=== PATIENT | female | born 1995 | race Caucasian/White ===

== ENCOUNTER 2016-10-07 03:04 | Emergency (ER) | payer MEDICAID ==
[~2016-10-07] VITALS: Ht 162.6 cm; Wt 50.0 kg
[~2016-10-07 03:04] MED LIST: INHALER
[2016-10-07] MEDS ORDERED: ONDANSETRON HCL 4MG/2ML VIAL IV STA (03:19)
[2016-10-07] MEDS ORDERED: SODIUM CHLORIDE 0.9% 1,000 ML IV ONE (03:19)
[2016-10-07 03:39] LABS: CHLORIDE 107 mEq/L (98-107); INDEX HEMOLYSI 1 (1-3); INDEX ICTERIC 1 (1-4); INDEX LIPEMIC 1 (1-3)
[2016-10-07 03:42] LABS: DIFFERENTIAL COMMENT 1; HEMATOCRIT. 34.2 % (36.0-48.0); HEMOGLOBIN. 11.2 g/dL (12.0-16.0); MEAN CORPUSCULAR HEMOGLOBIN 27.5 pg (28.0-32.0); MEAN CORPUSCULAR HGB CONC 32.8 g/dL (31.0-37.0); MEAN PLATELET VOLUME 8.6 fl (7.4-10.4); PLATELET 217 x1000/uL (130-400); RED BLOOD CELL COUNT 4.07 mill/uL (4.2-5.4); RED CELL DISTRIBUTION WIDTH 17.1 % (11.6-14.6); WHITE BLOOD COUNT 10.2 x1000/uL (4.5-11.0)
[2016-10-07 03:45] LABS: ANION GAP 14; CALCIUM 8.8 mg/dL (8.5-10.1); CARBON DIOXIDE 24 mEq/L (21-32); UREA NITROGEN BLOOD 11 mg/dL (7-21); eGFR > 60 mL/min (>60)
[2016-10-07 03:50] LABS: HCG SCREEN NEGATIVE
[2016-10-07 03:52] LABS: CLARITY URINE CLOUDY (CLEAR); COLOR URINE YELLOW (YELLOW); GLUCOSE URINE NEGATIVE (NEGATIVE); KETONES URINE 4+ (NEGATIVE); LEUKOCYTE ESTERASE URINE NEGATIVE (NEGATIVE); NITRITE URINE NEGATIVE (NEGATIVE); OCCULT BLOOD URINE NEGATIVE (NEGATIVE); PH URINE 6.5 (4.5-8.0); PROTEIN URINE 1+ (NEGATIVE); SPECIFIC GRAVITY URINE 1.041 (1.005-1.030)
[2016-10-07 04:28] LABS: PLATELET ESTIMATE NORMAL
[2016-10-07 04:33] LABS: BACTERIA URINE NONE SEEN; RBC URINE NONE SEEN /hpf (0-2); SQUAMOUS EPITHELIAL CELL URINE 2+ /lpf (RARE/1+); WBC URINE NONE SEEN /hpf (0-2)
[2016-10-07 04:59] VITALS: BP 111/64
== END 2016-10-07 05:20 | disposition home or self-care (01) ==
LOC: ER 03:04
DX: R11.2 Nausea with vomiting, unspecified (principal)
CPT/HCPCS: 36415; 80048; 81001; 84703; 85025; 96361; 96374; 99284; J2405; J7030; Z7610

== ENCOUNTER 2017-01-21 11:13 | Emergency (ER) | payer MEDICAID ==
[~2017-01-21] VITALS: Ht 162.6 cm; Wt 50.0 kg
[2017-01-21] MEDS ORDERED: BACITRACIN ZINC OINT UDPKT TOP ONE (12:15)
[2017-01-21] MEDS ORDERED: TETANUS, DIPHTHERIA, PERTUSSIS VAC/PF 0.5ML (>7YR OLD) IM ONE (12:15)
[2017-01-21] MEDS ORDERED: LIDOCAINE HCL 1% 20ML VIAL (Pyxis) INJ MC ONE (12:15)
[2017-01-21 15:14] VITALS: BP 109/72
== END 2017-01-21 15:20 | disposition home or self-care (01) ==
LOC: ER 11:26
DX: S61.411A Laceration without foreign body of right hand, initial encounter (principal); J45.909 Unspecified asthma, uncomplicated; W45.8XXA Other foreign body or object entering through skin, initial encounter; Y93.89 Activity, other specified; Y92.89 Other specified places as the place of occurrence of the external cause
CPT/HCPCS: 12042; 90471; 90715; 99284; J3490; X7700; Z7610

== ENCOUNTER 2017-02-02 15:55 | Emergency (ER) | payer MEDICAID, OTHER ==
[~2017-02-02] VITALS: Ht 157.5 cm; Wt 57.0 kg
[2017-02-02] MEDS ORDERED: IBUPROFEN 800MG TABLET PO ONE (19:00)
[2017-02-02 22:54] VITALS: BP 118/54
== END 2017-02-03 01:12 | disposition home or self-care (01) ==
LOC: ER 19:03
DX: J06.9 Acute upper respiratory infection, unspecified (principal); J45.909 Unspecified asthma, uncomplicated
CPT/HCPCS: 71010; 81025; 99283

== ENCOUNTER 2017-03-06 02:16 | Emergency (ER) | payer MEDICAID ==
[~2017-03-06] VITALS: Ht 162.6 cm; Wt 53.0 kg
[2017-03-06] MEDS ORDERED: IBUPROFEN 600MG TABLET PO ONE (05:00)
[2017-03-06 05:14] VITALS: BP 106/46
== END 2017-03-07 05:30 | disposition home or self-care (01) ==
LOC: ER 07:25
DX: J06.9 Acute upper respiratory infection, unspecified (principal); N39.0 Urinary tract infection, site not specified; J45.909 Unspecified asthma, uncomplicated
CPT/HCPCS: 99283

== ENCOUNTER 2017-10-21 13:01 | Emergency (ER) | payer MEDICAID ==
[~2017-10-21] VITALS: Ht 160 cm; Wt 61.0 kg
[2017-10-21 14:00] LABS: BASOPHILS % 1.4 % (0.0-2.0); EOSINOPHILS % 9.5 % (0.0-5.0); HEMATOCRIT. 30.8 % (36.0-48.0); LYMPHOCYTES % 22.4 % (20.0-50.0); MEAN CORPUSCULAR VOLUME 76.9 fL (81.0-99.0); MEAN PLATELET VOLUME 7.7 fl (7.4-10.4); MONOCYTES % 9.7 % (2.0-8.0); PLATELET 428 x1000/uL (130-400); RED BLOOD CELL COUNT 4.01 mill/uL (4.2-5.4); RED CELL DISTRIBUTION WIDTH 21.5 % (11.6-14.6)
[2017-10-21 14:03] LABS: CHLORIDE 110 mEq/L (98-107)
[2017-10-21 14:04] LABS: PROTHROMBIN TIME 10.7 sec (9.4-11.6)
[2017-10-21 14:28] LABS: HCG SCREEN NEGATIVE
[2017-10-21] MEDS ORDERED: KETOROLAC 30MG/ML VIAL IV STA (21:23)
[2017-10-21] MEDS ORDERED: ONDANSETRON HCL 4MG/2ML VIAL IV STA (21:23)
[2017-10-21] MEDS ORDERED: SODIUM CHLORIDE 0.9% 1,000 ML IV ONE (21:23)
[2017-10-21 21:35] LABS: CLARITY URINE CLOUDY (CLEAR); COLOR URINE YELLOW (YELLOW); KETONES URINE NEGATIVE (NEGATIVE); LEUKOCYTE ESTERASE URINE NEGATIVE (NEGATIVE); NITRITE URINE NEGATIVE (NEGATIVE); OCCULT BLOOD URINE 2+ (NEGATIVE); PROTEIN URINE NEGATIVE (NEGATIVE); SPECIFIC GRAVITY URINE 1.029 (1.005-1.030)
[2017-10-22] MEDS ORDERED: VISCOUS LIDOCAINE 2% 15 ML UDC PO STA (00:35)
[2017-10-22] MEDS ORDERED: ACETAMINOPHEN 325MG TABLET PO STA (00:35)
[2017-10-22] MEDS ORDERED: MAGNESIUM/ALUMINUM HYDROXIDE/SIMETHICONE 30ML UDC PO STA (00:35)
[2017-10-22] MEDS ORDERED: FAMOTIDINE 20MG TABLET PO ONE (00:45)
[2017-10-22 02:00] VITALS: BP 115/78
== END 2017-10-22 02:03 | disposition home or self-care (01) ==
LOC: ER 13:11
DX: R10.12 Left upper quadrant pain (principal); R10.11 Right upper quadrant pain; R03.0 Elevated blood-pressure reading, without diagnosis of hypertension; J45.909 Unspecified asthma, uncomplicated; R11.2 Nausea with vomiting, unspecified
CPT/HCPCS: 36415; 76700; 80053; 81003; 83690; 84703; 85025; 85610; 96361; 96374; 96375; 99285; J1885; J2405; J7030; Z7610

== ENCOUNTER 2018-10-15 23:09 | Emergency (ER) | payer MEDICAID ==
[~2018-10-15] VITALS: Ht 165.1 cm; Wt 65.0 kg
[2018-10-15] MEDS ORDERED: MORPHINE SULFATE 4 MG/ML CPJ (NOT FOR IM USE) IV NR (23:30)
[2018-10-15] MEDS ORDERED: ONDANSETRON HCL 4MG/2ML INJ IV NR (23:30)
[2018-10-16] MEDS ORDERED: KETAMINE HCL 50 MG/ML 10ML IV ONE ×2 (00:15→04:00)
[2018-10-16] MEDS ORDERED: PROPOFOL 200MG/20ML VIAL IV ONE ×2 (00:15→04:00)
[2018-10-16 06:20] VITALS: BP 125/73
== END 2018-10-16 06:21 | disposition home or self-care (01) ==
LOC: ER 23:09
DX: S43.084A Other dislocation of right shoulder joint, initial encounter (principal); J45.909 Unspecified asthma, uncomplicated; X58.XXXA Exposure to other specified factors, initial encounter; Y93.89 Activity, other specified; Y92.89 Other specified places as the place of occurrence of the external cause; Y99.8 Other external cause status
CPT/HCPCS: 73020; 73030; 99284; J2270; J2405; J2704; J3490

== ENCOUNTER 2019-01-26 11:44 | Emergency (ER) | payer MEDICAID, OTHER ==
[~2019-01-26] VITALS: Ht 165.1 cm; Wt 64.0 kg
[2019-01-26] MEDS ORDERED: FAMOTIDINE 20MG/2ML VIAL IV STA (13:45)
[2019-01-26] MEDS ORDERED: ONDANSETRON HCL 4MG/2ML INJ IV STA (13:45)
[2019-01-26] MEDS ORDERED: MAGNESIUM/ALUMINUM HYDROXIDE/SIMETHICONE 30ML UDC PO STA (13:45)
[2019-01-26] MEDS ORDERED: KETOROLAC 30MG/ML VIAL IV STA (13:45)
[2019-01-26] MEDS ORDERED: ACETAMINOPHEN 325MG TABLET PO STA (13:45)
[2019-01-26 14:25] LABS: BASOPHILS % 0.8 % (0.0-2.0); EOSINOPHILS % 0.2 % (0.0-5.0); HEMATOCRIT. 32.8 % (36.0-48.0); HEMOGLOBIN. 10.3 g/dL (12.0-16.0); MEAN CORPUSCULAR HEMOGLOBIN 24.3 pg (28.0-32.0); MEAN CORPUSCULAR VOLUME 76.9 fL (81.0-99.0); MEAN PLATELET VOLUME 8.1 fl (7.4-10.4); MONOCYTES % 5.5 % (2.0-8.0); NEUTROPHILS % 85.5 % (40.0-76.0); PLATELET 328 x1000/uL (130-400); RED BLOOD CELL COUNT 4.26 mill/uL (4.2-5.4); RED CELL DISTRIBUTION WIDTH 20.8 % (11.6-14.6)
[2019-01-26 14:31] LABS: CHLORIDE 107 mEq/L (98-107)
[2019-01-26 14:43] LABS: CLARITY URINE CLEAR (CLEAR); COLOR URINE YELLOW (YELLOW); KETONES URINE NEGATIVE (NEGATIVE); LEUKOCYTE ESTERASE URINE NEGATIVE (NEGATIVE); NITRITE URINE NEGATIVE (NEGATIVE); OCCULT BLOOD URINE NEGATIVE (NEGATIVE); PH URINE >=9.0 (4.5-8.0); PROTEIN URINE 1+ (NEGATIVE); SPECIFIC GRAVITY URINE 1.021 (1.005-1.030)
[2019-01-26 16:23] VITALS: BP 126/81
[2019-01-27] MEDS ORDERED: FERR325T6 PO (16:36)
[2019-01-27] MEDS ORDERED: ALBU90AE IH (16:36)
== END 2019-01-26 16:26 | disposition home or self-care (01) ==
LOC: ER 11:44
DX: R10.13 Epigastric pain (principal); R11.2 Nausea with vomiting, unspecified; J45.909 Unspecified asthma, uncomplicated
CPT/HCPCS: 36415; 80053; 81003; 81025; 83690; 85025; 96374; 96375; 99283; J1885; J2405; J3490; Z7610

== ENCOUNTER 2019-01-28 07:15 | Inpatient (IN) | payer MEDICAID ==
[2019-01-28] VITALS: BP 114/45
[~2019-01-28] VITALS: Ht 160 cm; Wt 64.0 kg
[~2019-01-28 07:15] MED LIST changes: +ALBU90AE IH; +CEFOXITIN SODIUM 2 G in DEXT 5% WATER 100 ML IV STA; +FERR325T6 PO; -INHALER
[2019-01-28] MEDS ORDERED: CEFAZOLIN 2000MG PREMIX 50 ML IV ONE (07:45)
[2019-01-28 08:22] LABS: UCG SCREEN NEGATIVE
[2019-01-28 08:27] LABS: HEMATOCRIT 28.3 % (36.0-48.0); HEMOGLOBIN 9.1 g/dL (12.0-16.0)
[2019-01-28] MEDS ORDERED: LACTATED RINGERS 1,000 ML IV SCH (08:30)
[2019-01-28] MEDS ORDERED: LIDOCAINE HCL 1% 20ML VIAL (Pyxis) INJ ONE (11:06)
[2019-01-28] MEDS ORDERED: SKIN ADHESIVE 0.7 GM EA TOP ONE (11:06)
[2019-01-28] MEDS ORDERED: BACITRACIN 50,000 UNITS/VIAL ONE (11:07)
[2019-01-28] MEDS ORDERED: BUPIVACAINE HCL/PF 0.5% (5MG/ML) 10ML ONE (11:07)
[2019-01-28] MEDS ORDERED: NORMAL SALINE 0.9% 10 ML SYR ONE (11:07)
[2019-01-28] MEDS ORDERED: INDOCYANINE GREEN 25 MG VIAL IV ONE (11:08)
[2019-01-28] MEDS ORDERED: PROPOFOL 200MG/20ML VIAL IV ONE (11:54)
[2019-01-28] MEDS ORDERED: MIDAZOLAM HCL 2 MG/2 ML VIAL ONE (11:54)
[2019-01-28] MEDS ORDERED: ROCURONIUM BROMIDE 10MG/ML VIAL 5ML IV ONE (11:54)
[2019-01-28] MEDS ORDERED: FENTANYL CITRATE/PF 50MCG/ML 2ML VIAL ONE ×2 (11:54→12:12)
[2019-01-28] MEDS ORDERED: NEOSTIGMINE METHYLSULFATE 1MG/ML 10 ML VIAL ONE (11:54)
[2019-01-28] MEDS ORDERED: METOCLOPRAMIDE HCL 10MG/2ML VIAL ONE (11:55)
[2019-01-28] MEDS ORDERED: LIDOCAINE HCL/PF 1% 10 MG/ML 5ML VIAL ONE (11:55)
[2019-01-28] MEDS ORDERED: GLYCOPYRROLATE 0.2 MG/ML 2ML VIAL ONE (11:55)
[2019-01-28] MEDS ORDERED: ONDANSETRON HCL 4MG/2ML INJ ONE (11:55)
[2019-01-28] MEDS ORDERED: SUCCINYLCHOLINE CHLORIDE 200MG/10ML IV ONE (11:55)
[2019-01-28] MEDS ORDERED: SODIUM CHLORIDE 0.9% 10ML VIAL ONE (11:55)
[2019-01-28] MEDS ORDERED: CEFAZOLIN SODIUM 1000MG/VIAL ONE (11:55)
[2019-01-28] MEDS ORDERED: HYDROMORPHONE HCL/PF 2MG/ML CPJ IV PRN ×2 (12:15→14:30)
[2019-01-28] MEDS ORDERED: MORPHINE SULFATE 2 MG/ML CPJ (NOT FOR IM USE) IV PRN (12:15)
[2019-01-28] MEDS ORDERED: MEPERIDINE HCL/PF 25MG/ML CPJ IV PRN ×2 (12:15)
[2019-01-28] MEDS ORDERED: SODIUM CHLORIDE 0.9% 1,000 ML IV ONE (12:15)
[2019-01-28] MEDS: ONDANSETRON HCL 4MG/2ML INJ IV PRN ×3 (14:00→19:50)
[2019-01-28] MEDS ORDERED: KETOROLAC 30MG/ML VIAL IV SCH (14:30)
[2019-01-28] MEDS ORDERED: ONDANSETRON HCL 4MG/2ML INJ IV PRN (14:30)
[2019-01-28 15:30] VITALS: BP 113/66
[2019-01-28 16:00] VITALS: BP 113/66
[2019-01-28] MEDS ORDERED: SODIUM CHLORIDE 0.45% 1,000 ML IV SCH (16:30)
[2019-01-28] MEDS: HYDROMORPHONE HCL/PF 2MG/ML CPJ IV PRN (19:51)
[2019-01-28 20:00] VITALS: BP 121/76
[2019-01-28] MEDS: KETOROLAC 30MG/ML VIAL IV SCH (22:59)
[2019-01-29] MEDS: ONDANSETRON HCL 4MG/2ML INJ IV PRN (01:47)
[2019-01-29] MEDS: HYDROMORPHONE HCL/PF 2MG/ML CPJ IV PRN (01:48)
[2019-01-29 04:00] VITALS: BP 100/54
[2019-01-29] MEDS: KETOROLAC 30MG/ML VIAL IV SCH ×2 (04:59→10:00)
[2019-01-29 08:00] VITALS: BP 95/53
[2019-01-29 10:25] VITALS: BP 95/53
[2019-01-29 12:00] VITALS: BP 110/68
== END 2019-01-29 12:46 | disposition home or self-care (01) | DRG 263 ==
LOC: OR 07:15 → 6EST 07:16
PROVIDERS: ADMIT Specialist; ATTEND Specialist
PROC: 0FT44ZZ Resection of Gallbladder, Percutaneous Endoscopic Approach (ICD-10-PCS; principal; 2019-01-28)
PROC: 8E0W4CZ Robotic Assisted Procedure of Trunk Region, Percutaneous Endoscopic Approach (ICD-10-PCS; 2019-01-28)
DX: K80.20 Calculus of gallbladder without cholecystitis without obstruction (principal); J45.909 Unspecified asthma, uncomplicated; Z79.899 Other long term (current) drug therapy
CPT/HCPCS: 36415; 81025; 85014; 85018; 88304; J0330; J0690; J1170; J1885; J2250; J2405; J2704; J2710; J2765; J3010; J3490; Q9957

== ENCOUNTER 2019-01-29 23:20 | Emergency (ER) | payer MEDICAID ==
[~2019-01-29] VITALS: Ht 170.2 cm; Wt 64.0 kg
[~2019-01-29 23:20] MED LIST changes: -CEFOXITIN SODIUM 2 G in DEXT 5% WATER 100 ML IV STA
[2019-01-30] MEDS ORDERED: KETOROLAC 30MG/ML VIAL IV ONE (00:30)
[2019-01-30] MEDS ORDERED: PROPOFOL 200MG/20ML VIAL IV ONE (01:00)
[2019-01-30] MEDS ORDERED: KETAMINE HCL 50 MG/ML 10ML IV ONE (01:00)
[2019-01-30] MEDS ORDERED: ONDANSETRON HCL 4MG/2ML INJ IV ONE (01:15)
[2019-01-30 02:45] VITALS: BP 112/67
== END 2019-01-30 03:00 | disposition home or self-care (01) ==
LOC: ER 23:20
DX: S43.014A Anterior dislocation of right humerus, initial encounter (principal); X58.XXXA Exposure to other specified factors, initial encounter; Y93.84 Activity, sleeping; Y92.013 Bedroom of single-family (private) house as the place of occurrence of the external cause
CPT/HCPCS: 23650; 73020; 73030; 96374; 96375; 99285; J1885; J2405; J2704; J3490; Z7610

== ENCOUNTER 2019-03-07 23:28 | Emergency (ER) | payer MEDICAID ==
[~2019-03-07] VITALS: Ht 162.6 cm; Wt 65.0 kg
[2019-03-08] MEDS ORDERED: IBUPROFEN 600MG TABLET PO ONE (07:00)
[2019-03-08 08:26] VITALS: BP 108/62
== END 2019-03-08 08:30 | disposition home or self-care (01) ==
LOC: ER 23:28
DX: S93.401A Sprain of unspecified ligament of right ankle, initial encounter (principal); X58.XXXA Exposure to other specified factors, initial encounter; Y93.89 Activity, other specified; Y92.89 Other specified places as the place of occurrence of the external cause
CPT/HCPCS: 73610; 99283

== ENCOUNTER 2019-06-04 08:36 | Emergency (ER) | payer MEDICAID ==
[~2019-06-04] VITALS: Ht 165.1 cm; Wt 60.0 kg
[2019-06-04] MEDS ORDERED: MAGNESIUM/ALUMINUM HYDROXIDE/SIMETHICONE 30ML UDC PO STA (10:24)
[2019-06-04] MEDS ORDERED: SODIUM CHLORIDE 0.9% 1,000 ML IV ONE (10:24)
[2019-06-04] MEDS ORDERED: ONDANSETRON HCL 4MG/2ML INJ IV STA (10:24)
[2019-06-04] MEDS ORDERED: VISCOUS LIDOCAINE 2% 15 ML UDC PO STA (10:24)
[2019-06-04] MEDS ORDERED: KETOROLAC 30MG/ML VIAL IV STA (10:24)
[2019-06-04] MEDS ORDERED: DICYCLOMINE 10 MG/5 ML ORAL SYR PO STA (10:24)
[2019-06-04 10:34] LABS: BASOPHILS % 0.9 % (0.0-2.0); EOSINOPHILS % 6.1 % (0.0-5.0); HEMATOCRIT. 37.3 % (36.0-48.0); LYMPHOCYTES % 12.2 % (20.0-50.0); MEAN CORPUSCULAR HEMOGLOBIN 25.1 pg (28.0-32.0); MEAN CORPUSCULAR VOLUME 78.2 fL (81.0-99.0); MEAN PLATELET VOLUME 8.6 fl (7.4-10.4); MONOCYTES % 7.3 % (2.0-8.0); NEUTROPHILS % 73.5 % (40.0-76.0); PLATELET 347 x1000/uL (130-400); RED BLOOD CELL COUNT 4.77 mill/uL (4.2-5.4); RED CELL DISTRIBUTION WIDTH 17.3 % (11.6-14.6)
[2019-06-04 10:36] LABS: CHLORIDE 109 mEq/L (98-107); CLARITY URINE CLOUDY (CLEAR); COLOR URINE ORANGE (YELLOW); KETONES URINE NEGATIVE (NEGATIVE); LEUKOCYTE ESTERASE URINE TRACE (NEGATIVE); NITRITE URINE NEGATIVE (NEGATIVE); OCCULT BLOOD URINE 3+ (NEGATIVE); PH URINE >=9.0 (4.5-8.0); PROTEIN URINE 2+ (NEGATIVE); SPECIFIC GRAVITY URINE 1.025 (1.005-1.030)
[2019-06-04 11:25] LABS: ETHANOL BLOOD < 10 mg/dL
[2019-06-04] MEDS ORDERED: IBUPROFEN 600MG TABLET PO ONE (12:00)
[2019-06-04 12:28] VITALS: BP 110/73
[2019-06-04] MEDS ORDERED: ACETAMINOPHEN 325MG TABLET PO ONE (13:00)
== END 2019-06-04 13:22 | disposition home or self-care (01) ==
LOC: ER 08:36
DX: R10.30 Lower abdominal pain, unspecified (principal); N30.90 Cystitis, unspecified without hematuria; J45.909 Unspecified asthma, uncomplicated
CPT/HCPCS: 36415; 80053; 80320; 81003; 81025; 83690; 85025; 87086; 96361; 96374; 96375; 99284; J1885; J2405; J7030; Z7610; G0480

== ENCOUNTER 2020-03-01 02:13 | Emergency (ER) | payer MEDICAID ==
[~2020-03-01] VITALS: Ht 162.6 cm; Wt 57.0 kg
[2020-03-01] MEDS ORDERED: ONDANSETRON HCL 4MG/2ML INJ IV ONE (02:30)
[2020-03-01] MEDS ORDERED: MORPHINE SULFATE 4 MG/ML CPJ (NOT FOR IM USE) IV ONE (02:30)
[2020-03-01] MEDS ORDERED: PROPOFOL 200MG/20ML VIAL IV ONE (02:30)
[2020-03-01 06:08] VITALS: BP 112/68
== END 2020-03-01 06:10 | disposition home or self-care (01) ==
LOC: ER 02:13
DX: S43.084A Other dislocation of right shoulder joint, initial encounter (principal); X58.XXXA Exposure to other specified factors, initial encounter; Y93.89 Activity, other specified; Y92.89 Other specified places as the place of occurrence of the external cause
CPT/HCPCS: 23650; 73030; 93005; 96374; 96375; 99152; 99285; J2270; J2405; J2704

== ENCOUNTER 2020-10-26 06:47 | Emergency (ER) | payer MEDICAID ==
[~2020-10-26] VITALS: Ht 162.6 cm; Wt 57.0 kg
[2020-10-26 06:51] VITALS: BP 118/75
[2020-10-26] MEDS ORDERED: NITR100C MT (07:28)
[2020-10-26] MEDS ORDERED: PYR200 MT (07:28)
[2020-10-26 08:14] LABS: CLARITY URINE CLEAR (CLEAR); COLOR URINE YELLOW (YELLOW); KETONES URINE NEGATIVE (NEGATIVE); LEUKOCYTE ESTERASE URINE 2+ (NEGATIVE); NITRITE URINE NEGATIVE (NEGATIVE); OCCULT BLOOD URINE TRACE (NEGATIVE); PH URINE 6.5 (4.5-8.0); PROTEIN URINE NEGATIVE (NEGATIVE); SPECIFIC GRAVITY URINE 1.017 (1.005-1.030); UROBILINOGEN URINE 0.2 E.U./dL (0.2-1.0)
== END 2020-10-26 09:10 | disposition home or self-care (01) ==
LOC: ER 06:47
DX: N39.0 Urinary tract infection, site not specified (principal); J45.909 Unspecified asthma, uncomplicated; Z90.49 Acquired absence of other specified parts of digestive tract
CPT/HCPCS: 81003; 81025; 87077; 87186; 99283

== ENCOUNTER 2021-02-26 15:36 | Emergency (ER) | payer MEDICAID, OTHER ==
[~2021-02-26] VITALS: Ht 160 cm; Wt 63.0 kg
[~2021-02-26 15:36] MED LIST changes: +NITR100C MT; +PYR200 MT
[2021-02-26] MEDS ORDERED: ONDANSETRON 4MG ODT PO STA (16:47)
[2021-02-26] MEDS ORDERED: ACETAMINOPHEN 325MG TABLET PO ONE (17:15)
[2021-02-26] MEDS ORDERED: DEXT 5%/0.9% NACL 1,000 ML IV ONE (17:15)
[2021-02-26] MEDS ORDERED: KETOROLAC 15MG/ML VIAL IV ONE (17:15)
[2021-02-26 17:35] LABS: CLARITY URINE CLEAR (CLEAR); COLOR URINE YELLOW (YELLOW); KETONES URINE TRACE (NEGATIVE); LEUKOCYTE ESTERASE URINE TRACE (NEGATIVE); NITRITE URINE NEGATIVE (NEGATIVE); OCCULT BLOOD URINE NEGATIVE (NEGATIVE); PROTEIN URINE NEGATIVE (NEGATIVE); SPECIFIC GRAVITY URINE 1.023 (1.005-1.030); UROBILINOGEN URINE 0.2 E.U./dL (0.2-1.0)
[2021-02-26 18:06] LABS: BASOPHILS % 1.3 % (0.0-2.0); EOSINOPHILS % 1.1 % (0.0-5.0); HEMATOCRIT. 36.2 % (36.0-48.0); HEMOGLOBIN. 12.1 g/dL (12.0-16.0); LYMPHOCYTES % 25.7 % (20.0-50.0); MEAN CORPUSCULAR HEMOGLOBIN 27.8 pg (28.0-32.0); MEAN CORPUSCULAR VOLUME 83.5 fL (81.0-99.0); MEAN PLATELET VOLUME 8.4 fl (7.4-10.4); MONOCYTES % 9.1 % (2.0-8.0); NEUTROPHILS % 62.8 % (40.0-76.0); PLATELET 291 x1000/uL (130-400); RED BLOOD CELL COUNT 4.34 mill/uL (4.2-5.4); RED CELL DISTRIBUTION WIDTH 16.4 % (11.6-14.6)
[2021-02-26 18:12] LABS: PROTHROMBIN TIME 10.7 sec (9.6-11.0)
[2021-02-26 18:17] LABS: CHLORIDE 107 mEq/L (98-107)
[2021-02-26] MEDS ORDERED: ONDA4TAB5 MT (18:43)
[2021-02-26 18:55] VITALS: BP 135/75
== END 2021-02-26 18:56 | disposition home or self-care (01) ==
LOC: ER 16:02
DX: E86.0 Dehydration (principal); J45.909 Unspecified asthma, uncomplicated; Z90.49 Acquired absence of other specified parts of digestive tract; Z20.822 Contact with and (suspected) exposure to COVID-19
CPT/HCPCS: 36415; 80053; 81003; 81025; 83690; 85025; 85610; 87426; 96361; 96374; 99283; J1885; J7042; Q0162; Z7610

== ENCOUNTER 2022-01-05 21:32 | Emergency (ER) | payer MEDICAID, OTHER ==
[~2022-01-05] VITALS: Ht 162.6 cm; Wt 64.0 kg
[~2022-01-05 21:32] MED LIST changes: +ONDA4TAB5 MT
[2022-01-05 22:18] VITALS: BP 121/76
[2022-01-05] MEDS ORDERED: METOCLOPRAMIDE HCL 10MG/2ML VIAL IV ONE (22:30)
[2022-01-05] MEDS ORDERED: SODIUM CHLORIDE 0.9% 1,000 ML IV ONE (22:30)
[2022-01-05 23:38] LABS: BASOPHILS % 1.2 % (0.0-2.0); EOSINOPHILS % 5.3 % (0.0-5.0); HEMATOCRIT. 36.8 % (36.0-48.0); HEMOGLOBIN. 12.2 g/dL (12.0-16.0); LYMPHOCYTES % 30.8 % (20.0-50.0); MEAN CORPUSCULAR VOLUME 84.3 fL (81.0-99.0); MEAN PLATELET VOLUME 8.8 fl (7.4-10.4); MONOCYTES % 8.2 % (2.0-8.0); NEUTROPHILS % 54.5 % (40.0-76.0); PLATELET 300 x1000/uL (130-400); RED BLOOD CELL COUNT 4.36 mill/uL (4.2-5.4); RED CELL DISTRIBUTION WIDTH 15.6 % (11.6-14.6)
[2022-01-06 00:13] LABS: HCG SCREEN NEGATIVE
[2022-01-06 00:35] LABS: CHLORIDE 107 mEq/L (98-107)
[2022-01-06] MEDS ORDERED: METOCLOPRAMIDE HCL 10MG/2ML VIAL IV NR (03:45)
[2022-01-06] MEDS ORDERED: KETOROLAC 15MG/ML VIAL IV ONE (04:30)
[2022-01-06] MEDS ORDERED: IBUP-2029 MT (05:19)
== END 2022-01-06 05:33 | disposition home or self-care (01) ==
LOC: ER 21:32
DX: R51.9 Headache, unspecified (principal); R11.2 Nausea with vomiting, unspecified; R42 Dizziness and giddiness; D64.9 Anemia, unspecified; J45.909 Unspecified asthma, uncomplicated; Z79.899 Other long term (current) drug therapy
CPT/HCPCS: 36415; 70450; 80048; 84703; 85025; 96361; 96374; 99284; J2765; J7030; J1885

== ENCOUNTER 2022-06-18 06:54 | Emergency (ER) | payer MEDICAID, OTHER ==
[~2022-06-18] VITALS: Ht 162.6 cm; Wt 64.0 kg
[~2022-06-18 06:54] MED LIST changes: +IBUP-2029 MT
[2022-06-18 07:28] VITALS: BP 131/81
[2022-06-18] MEDS ORDERED: ACETAMINOPHEN 325MG TABLET PO ONE (09:15)
== END 2022-06-18 09:41 | disposition left against medical advice (07) ==
LOC: ER 06:54
DX: O23.41 Unspecified infection of urinary tract in pregnancy, first trimester (principal); M54.9 Dorsalgia, unspecified; Z3A.09 9 weeks gestation of pregnancy
CPT/HCPCS: 99282

== ENCOUNTER 2022-09-21 18:49 | Emergency (ER) | payer OTHER ==
[~2022-09-21] VITALS: Ht 162.6 cm; Wt 59.0 kg
[2022-09-21 18:57] VITALS: BP 110/64
[2022-09-21 21:56] LABS: BASOPHILS % 0.7 % (0.0-2.0); EOSINOPHILS % 2.5 % (0.0-5.0); HEMATOCRIT. 32.1 % (36.0-48.0); MEAN CORPUSCULAR VOLUME 90.6 fL (81.0-99.0); MEAN PLATELET VOLUME 7.4 fl (7.4-10.4); MONOCYTES % 7.2 % (2.0-8.0); NEUTROPHILS % 75.6 % (40.0-76.0); PLATELET 306 x1000/uL (130-400); RED BLOOD CELL COUNT 3.55 mill/uL (4.2-5.4); RED CELL DISTRIBUTION WIDTH 14.2 % (11.6-14.6)
[2022-09-21 21:57] LABS: CLARITY URINE CLEAR (CLEAR); COLOR URINE YELLOW (YELLOW); KETONES URINE NEGATIVE (NEGATIVE); LEUKOCYTE ESTERASE URINE NEGATIVE (NEGATIVE); NITRITE URINE NEGATIVE (NEGATIVE); OCCULT BLOOD URINE NEGATIVE (NEGATIVE); PH URINE 5.5 (4.5-8.0); PROTEIN URINE NEGATIVE (NEGATIVE); SPECIFIC GRAVITY URINE 1.023 (1.005-1.030); UROBILINOGEN URINE 0.2 E.U./dL (0.2-1.0)
[2022-09-21 22:08] LABS: CHLORIDE 104 mEq/L (98-107)
== END 2022-09-21 23:59 | disposition home or self-care (01) ==
LOC: ER 18:49
DX: R53.1 Weakness (principal)
CPT/HCPCS: 36415; 80053; 81003; 85025; 99283

== ENCOUNTER → 2025-07-05 | Emergency (ER) | payer OTHER ==
[~2025-07-05] VITALS: Ht 167.6 cm; Wt 70.0 kg
[~2025-07-05] MED LIST changes: -ALBU90AE IH; -FERR325T6 PO; +IBUP-1455 MT; -IBUP-2029 MT
[2025-07-05 09:23] VITALS: TEMP 37.8; O2SAT 99
[2025-07-05 11:05] VITALS: BP 106/72; PULSE 90; RESP 18
[2025-07-05] MEDS: IBUPROFEN 600MG TABLET PO ONE (11:05)
[2025-07-05 13:16] LABS: INFLUENZA TYPE A Presumptive Negative (Pres. Neg.); INFLUENZA TYPE B Presumptive Negative (Pres. Neg.)
== END ==
LOC: ER 09:18
DX: J10.1 Influenza due to other identified influenza virus with other respiratory manifestations (principal); B34.9 Viral infection, unspecified; J45.909 Unspecified asthma, uncomplicated; Z90.49 Acquired absence of other specified parts of digestive tract; D64.9 Anemia, unspecified; Z79.899 Other long term (current) drug therapy; Z20.822 Contact with and (suspected) exposure to COVID-19
CPT/HCPCS: 71046; 87426; 87804; 99284